=== PATIENT | female | born 1945 | race Caucasian/White ===

== ENCOUNTER 2017-05-15 22:29 | Emergency (ER) | payer MEDICARE ==
[2017-05-15] MEDS ORDERED: Adacel (T-DAP) 0.5 ML VIAL ONE (23:23)
--- NOTE | 2017-05-16 07:29 | CT ---
PRELIMINARY REPORT/[facility]/EMERGENCY AFTER HOURS PROCEDURE: EXAM: CT Head Without Intravenous Contrast CLINICAL HISTORY: 71 years old, female; Injury or trauma; Fall; Initial encounter; Blunt trauma (contusions or hematom as); Patient HX: Trip and fall at home. Hit back of head. No loc. C/O head pain TECHNIQUE: Axial computed tomography images of the head/brain without intravenous contrast. EXAM DATE/TIME: Exam ordered 05/15/2017 10:55 PM COMPARISON: No relevant prior studies available. FINDINGS: Brain: Volume loss and chronic small vessel ischemic change. No hemorrhage. Ventricles: Unremarkable. No ventriculomegaly. Bones/joints: Unremarkable. No acute fracture. Soft tissues: Unremarkable. Sinuses: Unremarkable as visualized. No acute sinusitis. Mastoid air cells: Unremarkable as visualized. No mastoid effusion. IMPRESSION: No intracranial hemorrhage. Thank you for allowing us to participate in the care of your patient. Dictated and Authenticated by: Hernandez Henderson MD 05/15/2017 11:09 PM Central Time ([place] \T\ [place]) FINAL REPORT CT BRAIN WITHOUT CONTRAST: Date: 05-15-17 Comparison: 09-26-11 FINDINGS: The ventricles are normal in size for age and show no shift. No intracranial bleeding or extraaxial hematoma was apparent. There is no sign of acute stroke, mass, or edema. There is probably a tiny la cunar infarct from the past in the left posterior frontal region. It is difficult to see it for sure on the 2010 study, though it was probably present. IMPRESSION: No acute intracranial findings. Report in agreement with preliminary reading by TANYA. POS: HOME
== END 2017-05-15 23:46 | disposition home or self-care (01) ==
LOC: BURERS 22:29
DX: S09.90XA Unspecified injury of head, initial encounter (principal); S00.01XA Abrasion of scalp, initial encounter; E11.9 Type 2 diabetes mellitus without complications; E78.5 Hyperlipidemia, unspecified; I10 Essential (primary) hypertension; W01.110A Fall on same level from slipping, tripping and stumbling with subsequent striking against sharp glass, initial encounter; Z23 Encounter for immunization; W01.198A Fall on same level from slipping, tripping and stumbling with subsequent striking against other object, initial encounter; Y92.009 Unspecified place in unspecified non-institutional (private) residence as the place of occurrence of the external cause
CPT/HCPCS: 70450; 90471; 90715

== ENCOUNTER 2018-04-21 08:23 | Emergency (ER) | payer MEDICARE ==
--- NOTE | 2018-04-21 10:19 | CT ---
CT OF HEAD NONCONTRAST: INDICATION: Trip, fall, head injury with pain. COMPARISON: 05/15/17. FINDINGS: There is no acute intracranial hemorrhage, mass effect, midline shift, or ventriculomegaly. There is mild chronic microvascular ischemic disease. Calvarium is intact. There is mild focal prominence o f the right frontal scalp. Correlate with physical exam. IMPRESSION: No acute intracranial hemorrhage or mass effect. POS: [facility]
--- NOTE | 2018-04-21 10:45 | CT ---
CT CERVICAL SPINE WITHOUT CONTRAST: HISTORY: The patient fell last night. Posttraumatic pain. COMPARISON: 09/26/11. TECHNIQUE: CT cervical spine is performed without contrast. Reformatted images are submitted for interpretation . FINDINGS: No craniocervical dissociation. Lateral masses of C1 and C2 as well as the facets have appropriate a lignment. There is extensive postsurgical change with laminectomy defect at C4, C5, C6. Posterior e lement fusion hardware is noted throughout the majority of the cervical spine as well as the upper th oracic spine. No perihardware lucency. There is no prevertebral soft tissue swelling or epidural he matoma. Soft tissue neck structures, upper mediastinum, and lung apices are unremarkable. Calcifications ass ociated with the right thyroid lobe are noted. Varying degrees of foraminal stenosis due to degenerative change. Evaluation is limited by technique . Cervical spine vertebral body height is maintained. There is no fracture. IMPRESSION: 1. No fracture. 2. Extensive postsurgical changes involving laminectomy defects as well as posterior element fusion hardware. POS: [facility]
== END 2018-04-21 09:38 | disposition home or self-care (01) ==
LOC: BURERS 08:23
DX: S06.0X0A Concussion without loss of consciousness, initial encounter (principal); S01.81XA Laceration without foreign body of other part of head, initial encounter; E11.9 Type 2 diabetes mellitus without complications; E78.5 Hyperlipidemia, unspecified; I10 Essential (primary) hypertension; W18.30XA Fall on same level, unspecified, initial encounter
CPT/HCPCS: 70450; 72125